=== PATIENT | male | born 1995 | race Caucasian/White ===

== ENCOUNTER 2017-01-10 21:24 | Emergency (ER) | payer SELFPAY ==
[~2017-01-10] VITALS: Ht 167.6 cm; Wt 81.6 kg
[2017-01-10 21:47] VITALS: BP 101/60
--- NOTE | 2017-01-11 00:08 | NUR ---
Patient ambulated to bed 08.
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
--- NOTE | 2017-01-11 00:37 | NUR ---
Dr. Lindsey evaluating patient at bedside.
[2017-01-11] MEDS ORDERED: SILVER SULFADIAZINE 1% 50 GM JAR TP ONE (01:00)
[2017-01-11 01:45] VITALS: BP 101/60
--- NOTE | 2017-01-11 01:45 | NUR ---
Patient discharged with v/s stable. Written and verbal after care instructions given and explained. Patient alert, oriented and verbalized understanding of instructions. Ambulatory with steady gait. All questions addressed prior to discharge. ID band removed. Patient advised to follow up with PMD. Rx of SILVADENE CREAM, given. Patient educated on indication of medication including possible reaction and side effects. Opportunity to ask questions provided and answered.
== END 2017-01-11 01:45 | disposition home or self-care (01) ==
LOC: MED 21:24
DX: T20.10XA Burn of first degree of head, face, and neck, unspecified site, initial encounter (principal); X08.8XXA Exposure to other specified smoke, fire and flames, initial encounter; Y93.89 Activity, other specified; Y92.89 Other specified places as the place of occurrence of the external cause; Y99.8 Other external cause status
CPT/HCPCS: 16020; 99284